=== PATIENT | female | born 1970 | race African-American/Black ===

== ENCOUNTER → 2018-10-28 | Day surgery (SDC) | payer OTHER | LOC: MAMMO 06:46 | PROVIDERS: ATTEND Family Medicine | DX: R92.1 Mammographic calcification found on diagnostic imaging of breast (principal); Z53.9 Procedure and treatment not carried out, unspecified reason ==

== ENCOUNTER 2018-12-09 16:01 | Outpatient (CLI) | payer OTHER ==
[2018-12-09 16:54] LABS: #Eosinphils 0.1 thou/uL (0.0-0.7); #Monocytes 0.4 thou/uL (0.11-0.59); #Neutrophils 3.7 thou/uL (1.40-6.50); %Basophils 0.3 % (0.0-1.0); %Eosinophils 1.1 % (0.0-10.0); %Lymphocytes 31.8 % (21.0-51.0); %Neutrophils 59.8 % (42.0-75.0); Hemoglobin 13.5 g/dL (12.0-16.0); Mean Corpuscular HGB CONC 33.4 g/dL (32.0-36.0); Mean Corpuscular Hemoglobin 31.9 pg (27.0-31.0); Mean Corpuscular Volume 95.5 fL (78.0-98.0); Mean Platelet Volume 8.4 fL (7.4-10.4); Platelet Count 189 thou/uL (130-400); RBC Distribution Width 12.6 % (11.5-14.5); Red Blood Cell (RBC) Count 4.23 mill/uL (4.20-5.40); White Blood Cell (WBC) Count 6.2 thou/uL (4.8-10.8)
[2018-12-09 17:18] LABS: Anion Gap 12 mmol/L (10-20); BUN (Urea Nitrogen) 16 mg/dL (7.0-18.7); Calc. Creatinine Clearance 0 mL/min (70-130); Calcium 9.1 mg/dL (7.8-10.44); Carbon Dioxide 23 mmol/L (22-29); Chloride 102 mmol/L (98-107); Estimated GFR-MDRD 80; Glucose 270 mg/dL (70-105); Potassium 3.8 mmol/L (3.5-5.1); Sodium 133 mmol/L (136-145)
--- NOTE | 2018-12-10 20:02 | EKG ---
Test Reason : Blood Pressure : / mmHG Vent. Rate : 081 BPM Atrial Rate : 081 BPM P-R Int : 128 ms QRS Dur : 098 ms QT Int : 392 ms P-R-T Axes : 015 053 011 degrees QTc Int : 455 ms Normal sinus rhythm with sinus arrhythmia Cannot rule out Inferior infarct , age undetermined Cannot rule out Anterior infarct , age undetermined Abnormal ECG When compared with ECG of 09-AUG-2016 11:57, Minimal criteria for Anterior infarct are now Present Nonspecific T wave abnormality now evident in Anterolateral leads Confirmed by AMBAR COOLEY, DR. Martinez ([id number]) on 12/10/2018 8:02:14 PM Referred By: JIGAR Confirmed By:DR. Michelle VILLALTA MD
== END 2018-12-09 16:02 | disposition home or self-care (01) ==
LOC: LABBT 16:01
PROVIDERS: ATTEND Surgery
DX: Z01.818 Encounter for other preprocedural examination (principal); R92.8 Other abnormal and inconclusive findings on diagnostic imaging of breast
CPT/HCPCS: 80048; 85025; 93005; 93010

== ENCOUNTER 2018-12-12 06:57 | Day surgery (SDC) | payer OTHER ==
[2018-12-09 16:15] VITALS: BMI 40.8
[2018-12-12] MEDS ORDERED: Isosulfan Blue 50 MG/5 ML VIAL ONE (07:22)
[2018-12-12] MEDS ORDERED: Bupivacaine/Epinephrine 0.25% 30 ML VIAL ONE (07:22)
[2018-12-12] MEDS ORDERED: Fentanyl 100 MCG/2 ML VIAL ONE (08:27)
[2018-12-12] MEDS ORDERED: Albuterol Sulfate HFA (OR ONLY) ONE (08:45)
--- NOTE | 2018-12-12 09:24 | MMO ---
SPECIMEN RADIOGRAPH: CLINICAL HISTORY: Status post needle localization left breast. FINDINGS: Excised specimen is radiographed which does reveal calcifications within the excised specimen surroun ded by curved wire. IMPRESSION: Specimen radiograph containing cluster of calcifications and the distal aspect of the wire. Message was conveyed to the OR by the nuclear medicine technologist. Transcribed Date/Time: 12/12/2018 9:50 AM
[2018-12-12] MEDS ORDERED: Lidocaine 1% PF 5 ML VIAL ONE (11:07)
[2018-12-12] MEDS ORDERED: Ondansetron PF 4 MG/2 ML Vial ONE (11:07)
[2018-12-12] MEDS ORDERED: Succinylcholine Chloride 20 MG/ML 10 ml SYRINGE FS ONE (11:07)
[2018-12-12] MEDS ORDERED: ePHEDrine 50 MG/ML VIAL ONE (11:07)
[2018-12-12] MEDS ORDERED: PHENYLEPHRINE-NS 100 MCG/ML 10 ML SYRINGE ONE (11:07)
[2018-12-12] MEDS ORDERED: PROPOFOL 200 MG/20 ML VIAL ONE (11:07)
[2018-12-12] MEDS ORDERED: Metoclopramide HCl 10 MG/2 ML VIAL ONE (11:07)
[2018-12-12] MEDS ORDERED: PROVENTIL INHALER 6.7 G (200 INHALATIONS) ONE (11:07)
--- NOTE | 2018-12-12 11:51 | MMO ---
NEEDLE LOCALIZATION LEFT BREAST SURGICAL SPECIMEN MAMMOGRAPHY LEFT BREAST BIOPSY HISTORY: Abnormal mammogram. Microcalcifications. FINDINGS: After explaining the procedure and answering all questions, mammographic images obtained ag [facility] showed microcalcification cluster within the immediate retroareolar aspect of the left breast. Superior approach was not possible. Sterile technique, buffered local anesthesia, mammographic guidance, and a lateral approach were then used to carefully advance the tip of a 7.5 cm [place] needle and wire through the posterior margin of the microcalcification cluster. Guidewire was placed to secure position. Patient tolerated the pro cedure well and was transferred to day surgery in good condition. Mammographic evaluation of the surgical specimen obtained by Dr. Arizmendi shows the metallic wire and microcalcification cluster within the surgical specimen. IMPRESSION: Technically successful mammographic guided needle localization left breast microcalcifica tions.
--- NOTE | 2018-12-12 15:09 | PDOC.OP ---
Operative Note - Operative Note Operative Note: PROCEDURE: Left breast needle localized excisional biopsy SURGEON: Dolly Arizmendi M.D. DATE: 12/12/2018 PREOPERATIVE DIAGNOSIS: Suspicious microcalcifications of the left breast POSTOPERATIVE DIAGNOSIS: Suspicious microcalcifications of the left breast HISTORY: Patient with new microcalcifications in the retroareolar area of the left breast. This was not amenable to stereotactic biopsy and needle localized excisional biopsy was recommended. PROCEDURE IN DETAIL: After informed consent was obtained and appropriate preoperative antibiotics administered the patient was taken to the operating room and general endotracheal anesthesia administered. She was placed in supine position and prepped and draped in standard sterile fashion. The needle localization films have been reviewed preoperatively with radiology and the calcifications of concern were located anterior to the needle localization wire , directly below the nipple. A periareolar incision was made at the needle location and dissection carried out to find the nipple near the dermis beyond the end of the wire. Dissection was then carried down laterally on both sides a couple centimeters away from the wire and inferior to the wire and the retroareolar breast tissue excised. This was marked for orientation with a long lateral and short superior and loop superficial suture. The specimen was sent for specimen mammogram which confirmed that the calcifications were present within the specimen. The wound was irrigated and hemostasis verified. Additional local anesthesia was infused for postoperative pain control. The subcutaneous tissues were reapproximated with 3-0 Monocryl suture and additional local anesthesia infused into the biopsy cavity. The skin was closed with 4-0 Monocryl suture and the incision dressed with Dermabond. Once the Dermabond was dry a compression dressing was placed and the patient was extubated and taken to recovery in good condition. Estimated blood loss was minimal. There were no complications. Specimen is left breast biopsy.
== END 2018-12-12 11:25 | disposition home or self-care (01) ==
LOC: SDC 06:57
PROVIDERS: ATTEND Surgery
PROC: 0HBU0ZX Excision of Left Breast, Open Approach, Diagnostic (ICD-10-PCS; principal; 2018-12-12)
PROC: BH01ZZZ Plain Radiography of Left Breast (ICD-10-PCS; principal; 2018-12-12)
DX: D24.2 Benign neoplasm of left breast (principal); Z79.4 Long term (current) use of insulin; Z79.899 Other long term (current) drug therapy
CPT/HCPCS: 19281; 36416; 76098; 88307; 88341; 88342; J0690; J2001; J2405; J2704; J2765; J3010; J3490; Q9968

== ENCOUNTER 2019-01-02 16:36 | Outpatient (CLI) | payer OTHER ==
[2019-01-02 17:17] LABS: #Basophils 0.1 thou/uL (0.0-0.2); #Eosinphils 0.1 thou/uL (0.0-0.7); #Lymphocytes 2.9 thou/uL (1.20-3.40); #Monocytes 0.6 thou/uL (0.11-0.59); #Neutrophils 3.9 thou/uL (1.40-6.50); %Eosinophils 0.8 % (0.0-10.0); %Lymphocytes 38.4 % (21.0-51.0); %Monocytes 7.8 % (0.0-10.0); %Neutrophils 51.9 % (42.0-75.0); Hemoglobin 14.1 g/dL (12.0-16.0); Mean Corpuscular HGB CONC 33.1 g/dL (32.0-36.0); Mean Corpuscular Hemoglobin 31.6 pg (27.0-31.0); Mean Corpuscular Volume 95.5 fL (78.0-98.0); Mean Platelet Volume 8.9 fL (7.4-10.4); Platelet Count 222 thou/uL (130-400); RBC Distribution Width 12.8 % (11.5-14.5); Red Blood Cell (RBC) Count 4.47 mill/uL (4.20-5.40); White Blood Cell (WBC) Count 7.5 thou/uL (4.8-10.8)
[2019-01-02 17:24] LABS: BHCG - Serum Negative (NEGATIVE); Pregs Control Background? CLEAR/WHITE (CLR/WHITE); Pregs Control Bar Appear? YES (CONTROL BAR)
== END 2019-01-02 16:37 | disposition home or self-care (01) ==
LOC: LABBT 16:36
PROVIDERS: ATTEND Surgery
DX: Z01.812 Encounter for preprocedural laboratory examination (principal); D36.9 Benign neoplasm, unspecified site
CPT/HCPCS: 84703; 85025

== ENCOUNTER 2019-01-08 09:35 | Day surgery (SDC) | payer OTHER ==
[2019-01-02 16:39] VITALS: BMI 40.8
[2019-01-08] MEDS ORDERED: Fentanyl 100 MCG/2 ML VIAL ONE (09:51)
[2019-01-08] MEDS ORDERED: Midazolam HCl 2 mg/2 ml Vial ONE (10:43)
[2019-01-08] MEDS ORDERED: Bupivacaine/Epinephrine 0.25% 30 ML VIAL ONE (11:07)
[2019-01-08] MEDS ORDERED: Lidocaine 1% PF 5 ML VIAL ONE (11:12)
[2019-01-08] MEDS ORDERED: PROPOFOL 200 MG/20 ML VIAL ONE (11:12)
[2019-01-08] MEDS ORDERED: Glycopyrrolate 0.2 MG/ML 5 ML SYRINGE ONE (11:12)
[2019-01-08] MEDS ORDERED: Succinylcholine Chloride 20 MG/ML 10 ml SYRINGE FS ONE (11:12)
[2019-01-08] MEDS ORDERED: Ketorolac Tromethamine 30 MG/ML VIAL ONE (11:12)
[2019-01-08] MEDS ORDERED: Metoprolol Tartrate 5 MG/5 ML VIAL ONE (11:12)
[2019-01-08] MEDS ORDERED: PHENYLEPHRINE-NS 100 MCG/ML 10 ML SYRINGE ONE (11:12)
[2019-01-08] MEDS ORDERED: Rocuronium Bromide 10 MG/ML (10ML VIAL) ONE (11:12)
[2019-01-08] MEDS ORDERED: Ondansetron PF 4 MG/2 ML Vial ONE (13:44)
--- NOTE | 2019-01-08 14:11 | PDOC.OP ---
Operative Note - Operative Note Operative Note: PROCEDURE: Left breast reexcision SURGEON: Dolly Arizmendi M.D. 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 She underwent needle localized excisional breast biopsy which revealed papilloma with atypical features. This was positive at the posterior and inferior margins. Reexcision was recommended to exclude malignancy given the presence of atypia. PROCEDURE IN DETAIL: After informed consent was obtained and appropriate preoperative antibiotics administered the patient was taken to the operating room she was placed in supine position and general anesthesia was administered. She was prepped and draped in a standard sterile fashion and local anesthesia infused the skin and subcutaneous tissues over the lateral periareolar incision. This was reopened and dissection carried out to the small seroma cavity in the retroareolar area. This was entered and the inferior and posterior portion of the seroma cavity and the underlying breast tissue was excised. This was marked for orientation with a long lateral, short superior, and loop superficial suture. The wound was irrigated and hemostasis obtained using Bovie electrocautery. The wound was palpated and no abnormal feeling tissues were encountered. Additional local anesthesia was infused for postoperative pain control. The subcutaneous tissues were reapproximated with 3- 0 Monocryl sutures and additional local anesthesia infused into the biopsy cavity. The skin was then closed with a running 40 subcutaneous together Monocryl suture and Dermabond dressings were placed. Once the Dermabond was dry a fluffs compression dressing was placed and secured to the skin with tape. The patient was extubated and taken to recovery in good condition. Estimated blood loss was minimal. There were no complications. Specimen is extended inferior posterior margin of left breast biopsy.
[2019-01-08] MEDS ORDERED: HYDROcodone/Acetaminophen 5/325 mg Tablet ONE (14:22)
== END 2019-01-08 15:03 | disposition home or self-care (01) ==
LOC: SDC 09:35
PROVIDERS: ATTEND Surgery
PROC: 0HBU0ZZ Excision of Left Breast, Open Approach (ICD-10-PCS; principal; 2019-01-08)
DX: N60.22 Fibroadenosis of left breast (principal); Z79.4 Long term (current) use of insulin
CPT/HCPCS: 36416; 88307; J0690; J1885; J2001; J2250; J2405; J2704; J3010

== ENCOUNTER 2019-12-17 08:08 | Outpatient (CLI) | payer BC ==
--- NOTE | 2019-12-17 08:43 | MMO ---
Bilateral MAMMO Bilat Diag [facility]. CLINICAL HISTORY: Patient is 49 years old and is seen for diagnostic exam. The patient has the following family history of breast cancer: sister, at age 50. The patient has no personal history of cancer. The patient has a history of left Excisional Biopsy in December, - papilloma. VIEWS: The views performed were: bilateral craniocaudal with tomosynthesis; bilateral mediolateral oblique with tomosynthesis; and bilateral mediolateral with tomosynthesis. FILMS COMPARED: The present examination has been compared to a prior imaging study performed at [facility] on 08/28/2018. This study has been interpreted with the assistance of computer-aided detection. MAMMOGRAM FINDINGS: There are scattered fibroglandular densities. There are no suspicious masses, suspicious calcifications, or new areas of architectural distortion. IMPRESSION: THERE IS NO MAMMOGRAPHIC EVIDENCE OF MALIGNANCY. A ROUTINE FOLLOW-UP MAMMOGRAM IN 1 YEAR IS RECOMMENDED. THE RESULTS OF THIS EXAM WERE SENT TO THE PATIENT. ACR BI-RADS Category 1 - Negative MAMMOGRAPHY NOTE: 1. A negative mammogram report should not delay a biopsy if a dominant of clinically suspicious mass is present. 2. Approximately 10% to 15% of breast cancers are not detected by mammography. 3. Adenosis and dense breasts may obscure an underlying neoplasm. Reported by: Edmar LOPES Electonically Signed: [id number]
== END 2019-12-17 08:09 | disposition home or self-care (01) ==
LOC: BICMAMMO 08:08
PROVIDERS: ATTEND Surgery
DX: D24.9 Benign neoplasm of unspecified breast (principal)
CPT/HCPCS: 77066; G0279